=== PATIENT | female | born 1965 | race Caucasian/White ===

== ENCOUNTER 2019-10-30 11:48 | Emergency (ER) | payer BC, OTHER ==
[2019-10-30 11:54] VITALS: BP 131/65; PULSE 96
--- NOTE | 2019-10-30 12:08 | EDM.PDOC ---
ED HPI GENERAL MEDICAL PROBLEM - General Chief Complaint: Upper Extremity Injury/Pain Stated Complaint: LEFT WRIST INJURY Time Seen by Provider: 10/30/19 12:00 Source of Information: Reports: Patient, Old Records ([facility] chart/EMR) History Limitations: Reports: No Limitations - History of Present Illness INITIAL COMMENTS - FREE TEXT/NARRATIVE: The patient was brought to the emergency room via private automobile by her for evaluation of 5-10/10 sharp, throbbing left wrist pain after she fell backwards on her out-stretched arm while dancing this past evening at about 1:00 a.m. She has not injured this wrist in the past and is right-handed. Symptoms are refractory to ice therapy with 1000 mg of Tylenol taken at 9 AM this morning. No history of other injuries, including neck/back pain, head injury, neurological deficits, etc.. The patient denies any chest pain/pressure , heart flutter, dizziness, orthostasis, orthopnea, diaphoresis, paresthesias, recent decreased exercise tolerance, or any other anginal-type symptoms. No recent history of abdominal pain, heartburn, nausea, diarrhea, melena, gross hematochezia, or any food intolerance, including fatty foods, etc.. The patient also denies any recent fever, cough, wheezing, dyspnea, etc.. 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, Dressing(s) Left Wrist Pain Score (Numeric/FACES): 5 - Related Data Allergies Allergy/AdvReac Type Severity Reaction Status Date / Time bee venom protein (honey bee) Allergy Anaphylactic Verified 10/30/19 11:57 Shock Home Meds: Home Meds ALPRAZolam [Alprazolam] 1 tab PO DAILY PRN 10/30/19 [History] Celecoxib 200 mg PO DAILY PRN 10/30/19 [History] Cholecalciferol (Vitamin D3) [Vitamin D3] 5,000 unit PO DAILY 10/30/19 [History] Fluconazole [Diflucan] 150 mg PO DAILY PRN 10/30/19 [History] Pantoprazole Sodium [Protonix] 40 mg PO DAILY PRN 10/30/19 [History] Past Medical History HEENT History: Reports: Impaired Vision, Other (See Below) Other HEENT History: Note previous LASIK surgery as below with patient still needing glasses for driving, etc. Gastrointestinal History: Reports: GERD, Helicobacter Pylori, Other (See Below) . Denies: Cholelithiasis, Colon Polyp Other Gastrointestinal History: Note 3 previous treatments for H. pylori with subsequent negative H. pylori biopsy by EGD as below. ED CASE MANAGER History: Reports: : 3 Para: 3 LMP (Approximate): Other (See Below) Other ED CASE MANAGER History: Menopause at age 45. Musculoskeletal History: Reports: Arthritis, Osteoarthritis, Other (See Below) Other Musculoskeletal History: Previous total fractures. Psychiatric History: Reports: Anxiety, Depression - Past Surgical History HEENT Surgical History: Reports: LASIK, Other (See Below) Other HEENT Surgeries/Procedures: LASIK bilaterally in about 1999. GI Surgical History: Reports: Colonoscopy, EGD, Other (See Below). Denies: Polypectomy Other GI Surgeries/Procedures: Colonoscopy and EGD was negative biopsies for H. pylori on 02/24/13. - Past Imaging History Past Imaging History: Reports: DEXA Scan (Negative on 01/13/11.), Mammogram ( Last at [facility] in May 2019 by patient history), Ultrasound ( Gallbladder ultrasound on 03/08/13. Pelvic ultrasound on 05/24/08, 06/27/03, and 05/02/03. Abdominal ultrasound on 05/24/08.) Social & Family History - Family History Cardiac: Reports: Bypass, CAD, Syncope Other Cardiac Family History: Brother with 2 vessel CABG at age 58 with history of tobacco use. GI: Reports: Colon Polyps, Other (See Below) Other GI Family History: Mother with history of colonic polyps. Oncologic: Reports: Other (See Below). Denies: Colon Other Oncologic Family History: Paternal aunt with fatal stomach cancer in her 60s with patient denying any family history of colon cancer despite previous medical records. - Tobacco Use Smoking Status *Q: Never Smoker Tobacco Use Within Last Twelve Months: No Used Tobacco, but Quit: No Smoking Cessation Information Provided To Patient: No Second Hand Smoke Exposure: Yes Source of Second Hand Smoke Exposure: smokes. 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 ED EXAM, GENERAL - Physical Exam Exam: See Below Exam Limited By: No Limitations General Appearance: Alert, WD/WN, No Apparent Distress Head: Atraumatic, Normocephalic. No: Facial Swelling, Facial Tenderness, Sinus Tenderness Neck: Normal Inspection, Supple, Non-Tender, Full Range of Motion. No: Lymphadenopathy (L), Lymphadenopathy (R), Thyromegaly Respiratory/Chest: No Respiratory Distress, Lungs Clear, Normal Breath Sounds, No Accessory Muscle Use, Chest Non-Tender. No: Pleural Rub, Retractions Cardiovascular: Normal Peripheral Pulses, Regular Rate, Rhythm, No Edema, No Gallop, No JVD, No Murmur, No Rub. No: Gallop/S3, Gallop/S4, Friction Rub Peripheral Pulses: 2+: Radial (L), Radial (R) GI/Abdominal: Normal Bowel Sounds, Soft, Non-Tender, No Organomegaly, No Distention, No Abnormal Bruit, No Mass, Pelvis Stable. No: Guarding (Female) Exam: Deferred Rectal (Female) Exam: Deferred Back Exam: Normal Inspection, Full Range of Motion. No: CVA Tenderness (L), CVA Tenderness (R), Muscle Spasm Extremities: No Pedal Edema, Normal Capillary Refill, Joint Swelling (Mild to moderate left wrist swelling and localized tenderness with no crepitation, deformity, etc. No snuffbox tenderness.), Arm Pain (Left wrist as above), Limited Range of Motion (Left wrist secondary to injury). No: Cheryle's Sign Neurological: Alert, Oriented, CN II-XII Intact, Normal Cognition, Normal Gait, No Motor/Sensory Deficits Psychiatric: Normal Affect, Normal Mood Skin Exam: Warm, Dry, Intact, Normal Color, No Rash. No: Diaphoretic, Ecchymosis, Wound/Incision Lymphatic: No Adenopathy ED TRAUMA EXTREMITY PROCEDURES - Splinting Left Upper Extremity Splint Site: Left wrist Pre-Procedure NV Status: Normal Post-Procedure NV Status: Normal Splint Material: Other (3" x 12" padded fiberglass cut to fit and secured with one 2 inch and another 4 inch Chad wrap.) Splint Design: Other (Short arm palmar) Applied & Form Fitted By: Provider Provider Post-Splint Application NV Check: NV Status Normal, Good Position Complications: No Course - Vital Signs Last Recorded V/S: Last Vital Signs Temp 36.8 C 10/30/19 11:50 Pulse 96 10/30/19 11:50 Resp 16 10/30/19 11:50 BP 131/65 10/30/19 11:50 Pulse Ox 96 10/30/19 11:50 Vital Signs - 24 hr 10/30/19 11:50 Temperature [ 36.8 C Temporal] Pulse, 96 Peripheral [ Right Pulse Oximetry] Respiratory 16 Rate Blood Pressure 131/65 [Right Upper Arm] O2 Sat by Pulse 96 Oximetry - Orders/Labs/Meds Orders: Active Orders 24 hr Category Date Time Status Wrist Comp Min 3V Lt [CR] Stat Exams 10/30/19 12:08 Taken Obtain Past Medical Record [OM.PC] Routine Oth 10/30/19 12:08 Active Labs: None Meds: None - Radiology Interpretation Free Text/Narrative:: X-rays of the left wrist, 3 views, including distal third portion of the radius and ulnar shows a nondisplaced and non-angulated hairline fracture of the distal radius. No evidence of navicular or ulnar fractures. Departure - Departure Time of Disposition: 13:05 Disposition: Home, Self-Care 01 Condition: Good Clinical Impression: Peptic reflux disease, Mixed anxiety depressive disorder Closed Colles' fracture Qualifiers: Encounter type: initial encounter Laterality: left Qualified Code(s): S52.532A - Colles' fracture of left radius, initial encounter for closed fracture Osteoarthritis Qualifiers: Osteoarthritis location: multiple joints Osteoarthritis type: primary Qualified Code(s): M15.0 - Primary generalized (osteo)arthritis - Discharge Information *PRESCRIPTION DRUG MONITORING PROGRAM REVIEWED*: Not Applicable *COPY OF PRESCRIPTION DRUG MONITORING REPORT IN PATIENT [place]: Not Applicable Instructions: Cast or Splint Care, Adult, [id number], Wrist Fracture Treated With Immobilization, [id number] Referrals: Katlin Valerio NP [Primary Care Provider] - Forms: ED Department Discharge, ED Return to Work/School Form Additional Instructions: 1. Followup with your regular provider in 7 days as directed for reevaluation, repeat x-rays, and probable short arm cast placement. Bring these discharge instructions with you to that visit. 2. Ice packs and arm elevation as directed. 3. Limited use of the left wrist and hand with 10 pound lifting restriction with otherwise activity restrictions as discussed. Continue short arm splint therapy until otherwise directed by your regular provider 4. Work excuse- See Form 5. Stop all tobacco exposure ERIC as directed with counselling, information, etc. given 6. Immediately after this visit verify that your cellular telephone's voicemail has been activated and is empty. Also verify that your home telephone 's answering machine is operating properly and has space to receive messages. Note that it is sometimes necessary for us to be able to contact you at a later date to discuss your medical care. 7. Please remember that we are ALWAYS here for you and want to answer any questions you may have. Feel free to call the hospital any time and we call you back ERIC. 8. Attempt to remove your wedding ring ERIC as discussed 9. Avoid NSAIDs at bedtime, including Advil PM, etc.. May try regular Benadryl for insomnia, although this does interfere with your sleep cycle as discussed. 10. Tylenol 650 mg by mouth every 4 hours when necessary as directed. Sepsis Event Note - Evaluation Sepsis Screening Result: No Definite Risk - Focused Exam Vital Signs: Vital Signs Temp Pulse Resp BP Pulse Ox 10/30/19 11:50 36.8 C 96 16 131/65 96 Date Exam was Performed: 10/30/19 Time Exam was Performed: 13:08 - Problem List & Annotations (1) Closed Colles' fracture SNOMED Code(s): 538332468 Code(s): S52.539A - COLLES' FRACTURE OF UNSP RADIUS, INIT FOR CLOS FX Status: Acute Priority: High Current Visit: No Onset Date: 10/30/19 Annotation/Comment:: Activity restrictions, etc. discussed. Work excuse provided. Close follow-up by regular provider as per discharge instructions. Short arm palmar splint applied by this provider as above. Qualifiers: Encounter type: initial encounter Laterality: left Qualified Code(s): S52.532A - Colles' fracture of left radius, initial encounter for closed fracture (2) Osteoarthritis SNOMED Code(s): 218449824 Code(s): M19.90 - UNSPECIFIED OSTEOARTHRITIS, UNSPECIFIED SITE Status: Chronic Priority: Medium Current Visit: No Annotation/Comment:: Otherwise Stable by history with no evidence of other injuries. Qualifiers: Osteoarthritis location: multiple joints Osteoarthritis type: primary Qualified Code(s): M15.0 - Primary generalized (osteo)arthritis (3) Peptic reflux disease SNOMED Code(s): 018988521 Code(s): K21.9 - GASTRO-ESOPHAGEAL REFLUX DISEASE WITHOUT ESOPHAGITIS Status: Chronic Priority: Medium Current Visit: No Annotation/Comment:: Stable by history. Note previously treated H. pylori infection with negative follow-up gastric biopsies. Continue current medical therapy. (4) Mixed anxiety depressive disorder SNOMED Code(s): 753274247 Code(s): F41.8 - OTHER SPECIFIED ANXIETY DISORDERS Status: Chronic Priority: Medium Current Visit: No Annotation/Comment:: Stable by history with chronic insomnia. Melatonin has not been effective in the past. Patient cautioned about the use of NSAIDs/Benadryl preparations and the interference of Benadryl with normal sleep cycle. Follow-up with regular provider for possible further treatment options. - Problem List Review Problem List Initiated/Reviewed/Updated: Yes - My Orders Last 24 Hours: My Active Orders 10/30/19 12:08 Wrist Comp Min 3V Lt [CR] Stat Obtain Past Medical Record [OM.PC] Routine - Assessment/Plan Last 24 Hours: My Active Orders 10/30/19 12:08 Wrist Comp Min 3V Lt [CR] Stat Obtain Past Medical Record [OM.PC] Routine Assessment:: As above Plan: As above. Extensive precautions were given to the patient, who is in agreement with the treatment plan. See Patient Instructions for further treatment and plan.
== END 2019-10-30 13:05 | disposition home or self-care (01) ==
LOC: LL.ED 11:48
DX: S52.532A Colles' fracture of left radius, initial encounter for closed fracture (principal); M15.0 Primary generalized (osteo)arthritis; K21.9 Gastro-esophageal reflux disease without esophagitis; F41.8 Other specified anxiety disorders; Z79.899 Other long term (current) drug therapy; Z91.030 Bee allergy status; W19.XXXA Unspecified fall, initial encounter; Y93.41 Activity, dancing
CPT/HCPCS: 29125; 73110-LT; 99283-25